=== PATIENT | male | born 1935 | race Caucasian/White ===

== ENCOUNTER 2016-11-17 21:52 | Outpatient (CLI) ==
[2015-01-20 12:24] VITALS: BMI 21.5
== END 2016-11-17 21:53 | disposition home or self-care (01) ==
LOC: AMBL 21:52
PROVIDERS: ATTEND Family Medicine
DX: R91.8 Other nonspecific abnormal finding of lung field (principal)

== ENCOUNTER 2018-05-02 15:48 | Outpatient (CLI) | payer OTHER ==
[2015-01-20 12:24] VITALS: BMI 21.5
== END 2018-05-02 16:13 | disposition short-term general hospital (02) ==
LOC: AMBL 15:48
PROVIDERS: ATTEND Internal Medicine
DX: R41.82 Altered mental status, unspecified (principal); R50.9 Fever, unspecified; R09.89 Other specified symptoms and signs involving the circulatory and respiratory systems; R00.0 Tachycardia, unspecified; R40.2411 Glasgow coma scale score 13-15, in the field [EMT or ambulance]

== ENCOUNTER 2018-05-08 13:18 | Outpatient (CLI) | payer OTHER ==
[2015-01-20 12:24] VITALS: BMI 21.5
== END 2018-05-08 13:40 | disposition short-term general hospital (02) ==
LOC: AMBL 13:18
PROVIDERS: ATTEND Internal Medicine
DX: J18.1 Lobar pneumonia, unspecified organism (principal); R91.8 Other nonspecific abnormal finding of lung field; G30.9 Alzheimer's disease, unspecified; F02.80 Dementia in other diseases classified elsewhere, unspecified severity, without behavioral disturbance, psychotic disturbance, mood disturbance, and anxiety

== ENCOUNTER 2018-11-08 21:37 | Outpatient (CLI) ==
[2015-01-20 12:24] VITALS: BMI 21.5
== END 2018-11-08 22:00 | disposition short-term general hospital (02) ==
LOC: AMBL 21:37
PROVIDERS: ATTEND Family Medicine
DX: R06.02 Shortness of breath (principal); R53.1 Weakness